=== PATIENT | female | born 1995 | race American Indian/Alaskan Native ===

== ENCOUNTER 2018-11-10 11:36 | Outpatient (CLI) | payer BC ==
[2018-11-10 12:59] LABS: Hematocrit 27.4 % (30.3-42.9); Hemoglobin 9.4 gm/dl (10.1-14.3); Mean Corpuscular HGB Conc 34 % (30-34); Mean Corpuscular Hemoglobin 29 pg (28-32); Mean Corpuscular Volume 86 fl (79-97); Platelet Count 211 K/mm3 (140-440); Red Blood Count 3.18 M/mm3 (3.65-5.03); Red Cell Distribution Width 13.9 % (13.2-15.2)
[2018-11-10 13:03] LABS: Bilirubin,Urine NEG (Negative); Blood,Urine NEG (Negative); Color,Urine Yellow (Yellow); Mucus,Urine 1+ /HPF; Urobilinogen,Urine < 2.0 mg/dL (<2.0)
[2018-11-10 13:24] LABS: Uric Acid 5.3 mg/dL (3.5-7.6)
[2018-11-10 13:26] LABS: Alanine Aminotransferase < 5 units/L (7-56)
[2018-11-10 15:15] VITALS: BP 169/91
== END 2018-11-10 14:20 | disposition home or self-care (01) ==
LOC: TRG 11:36
PROVIDERS: ATTEND Obstetrics & Gynecology
DX: O47.03 False labor before 37 completed weeks of gestation, third trimester (principal); Z3A.37 37 weeks gestation of pregnancy
CPT/HCPCS: 36415; 59025; 81001; 82565; 84450; 84460; 84550; 85027

== ENCOUNTER 2018-11-21 15:09 | Inpatient (IN) | payer BC, MEDICAID ==
--- NOTE | 2018-11-21 16:14 | History and Physical Report ---
History of Present Illness Date of examination: 11/21/18 Date of admission: 11/21/18 15:09 Chief complaint: Induction of labor History of present illness: Pt is a 22yo BF EDC 12/01/18; EGA 38 6/7 weeks presents for induction of labor per Perinatology due to PIH. Her BP's in the office were 150/92 and 140/102 and 24 hour urine showed 350mg protein, but she denies headaches or blurred vision. She received care at [facility] since 17 weeks and co-managed by [facility] for Obesity and Preeclampsia. records are available and GBS is Negative. 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 History: herpes Social history: no significant social history, single - Obstetrical History Expected Date of Delivery: 11/29/18 Actual Gestation: 38 Week(s) 6 Day(s) : 1 Medications and Allergies Allergies Allergy/AdvReac Type Severity Reaction Status Date / Time No Known Allergies Allergy Verified 11/21/18 16:10 Review of Systems All systems: negative - Vital Signs Vital signs: Vital Signs Pulse BP 102 H 133/82 11/21/18 15:48 11/21/18 15:48 Temp Pulse Resp BP Pulse Ox 102 H 133/82 11/21/18 15:48 11/21/18 15:48 - Physical Exam Breasts: Positive: deferred Cardiovascular: Regular rate Lungs: Positive: Clear to auscultation Abdomen: Positive: normal appearance Genitourinary (Female): Positive: normal external genitalia Uterus: Positive: enlarged Extremities: Positive: normal - Obstetrical FHR: category 1 Uterine Contraction Monitor Mode: External Cervical Dilatation: 1 (per nurse) Cervical Effacement Percentage: 50 (per nurse) station: -2 Uterine Contraction Pattern: Absent Results Result Diagrams: 11/21/18 16:16 11/21/18 16:16 All other labs normal. Ultrasound: report reviewed (BPP 02/02; ROSALINDA 16.42) Assessment and Plan - Patient Problems (1) 38 weeks gestation of Onset Date: 11/21/18 Current Visit: Yes Status: Acute Plan to address problem: A: IUP @ 38 6/7 weeks Suspected preeclampsia P: Admit to L&D for cervidil/pitocin induction of labor Obtain PIH labs (2) Pre-eclampsia affecting , antepartum Onset Date: 11/21/18 Current Visit: Yes Status: Acute
[2018-11-21] MEDS ORDERED: BRETHINE IVP PRN (16:18)
[2018-11-21] MEDS ORDERED: ZOFRAN IV PRN (16:18)
[2018-11-21] MEDS ORDERED: MINERAL OIL PO PRN (16:18)
[2018-11-21] MEDS ORDERED: SUBLIMAZE IV PRN (16:18)
[2018-11-21] MEDS ORDERED: PHENERGAN PO PRN (16:18)
[2018-11-21] MEDS ORDERED: BRETHINE SUB-Q PRN (16:18)
[2018-11-21 16:34] LABS: Hematocrit 27.3 % (30.3-42.9); Hemoglobin 9.4 gm/dl (10.1-14.3); Mean Corpuscular HGB Conc 35 % (30-34); Mean Corpuscular Volume 86 fl (79-97); Platelet Count 212 K/mm3 (140-440); Red Blood Count 3.19 M/mm3 (3.65-5.03); Red Cell Distribution Width 14.5 % (13.2-15.2)
[2018-11-21] MEDS ORDERED: XYLOCAINE 2% INFILTRATI ONE (17:00)
[2018-11-21] MEDS ORDERED: PITOCin/NS 20 UNIT/1000ML DRIP 20 UNITS/1,000 ML BAG IV SCH (17:00)
[2018-11-21] MEDS ORDERED: PITOCin/NS 30 UNIT/500ML 30 UNITS/500 ML BAG IV SCH ×2 (17:00)
[2018-11-21 17:01] LABS: BUN/Creatinine Ratio 12; Blood Urea Nitrogen 7 mg/dL (7-17); Calcium 9.1 mg/dL (8.4-10.2); Hemolysis Index 16
[2018-11-21 17:09] LABS: Alanine Aminotransferase < 5 units/L (7-56)
[2018-11-21] MEDS ORDERED: CERVIDIL VG ONE (17:18)
[2018-11-22] MEDS: LACTATED RINGERS 1,000 ML IV SCH ×2 (05:29→19:00)
[2018-11-22] MEDS: STADOL IV PRN ×3 (05:30→15:50)
--- NOTE | 2018-11-22 17:32 | Progress Note ---
Assessment and Plan - Patient Problems (1) 38 weeks gestation of Onset Date: 11/21/18 Current Visit: Yes Status: Acute Plan to address problem: A: IUP @ 39 0/7 weeks Suspected preeclampsia P: Will proceed with a Primary C Section for Failure to descend (2) Pre-eclampsia affecting , antepartum Onset Date: 11/21/18 Current Visit: Yes Status: Acute (3) 39 weeks gestation of Onset Date: 11/22/18 Current Visit: Yes Status: Acute Subjective - Subjective Date of service: 11/22/18 Principal diagnosis: IUP @ 39 0/7 weeks; PIH Interval history: Pt is a 22yo BF EDC 12/01/18; EGA 38 6/7 weeks presents for induction of labor per Perinatology due to PIH. Her BP's in the office were 150/92 and 140/102 and 24 hour urine showed 350mg protein, but she denies headaches or blurred vision. She received cervidil followed by pitocin and is currently 10/100/V/0 and has been pushing x 2 hours. She refuses to push anymore and demands a C Section for delivery. We will proceed with a Primary C Section for failure to descend. Patient reports: loss of fluid, movement normal, contractions, no new complaints, no vaginal bleeding Objective - Vital Signs Vital Signs: Vital Signs - 12hr 11/22/18 11/22/18 11/22/18 06:06 07:05 07:29 Temperature Pulse Rate 89 95 H 97 H Respiratory Rate Blood Pressure 165/79 147/69 141/92 Blood Pressure [Right] 11/22/18 11/22/18 11/22/18 07:34 07:36 08:05 Temperature 98.2 F Pulse Rate 86 86 86 Respiratory 18 Rate Blood Pressure 146/80 140/76 Blood Pressure 140/80 [Right] 11/22/18 16:23 Temperature Pulse Rate 105 H Respiratory Rate Blood Pressure 131/83 Blood Pressure [Right] - Exam Abdomen: Present: normal appearance, soft FHR: category 1 Cervical Dilatation: 10 Cervical Effacement Percentage: 100 station: 0 Uterine Contraction Pattern: Regular Uterine Tone Measurement Phase: Contraction Uterine Contraction Intensity: Strong/Firm - Labs Labs: Abnormal Labs 11/21/18 11/21/18 16:16 16:16 RBC 3.19 L Hgb 9.4 L Hct 27.3 L MCHC 35 H Sodium 134 L Creatinine 0.6 L Glucose 120 H ALT < 5 L Alkaline Phosphatase 144 H Total Protein 6.2 L Albumin 3.0 L Laboratory Results - last 24 hr 11/21/18 16:16 RPR Nonreactive
[2018-11-22] MEDS ORDERED: REGLAN IV ONE (17:34)
[2018-11-22] MEDS ORDERED: PITOCin/NS 20 UNIT/1000ML DRIP 20 UNITS/1,000 ML BAG IV SCH ×2 (18:00→21:00)
[2018-11-22] MEDS ORDERED: LACTATED RINGERS 1,000 ML IV SCH (18:00)
[2018-11-22] MEDS ORDERED: ANCEF/STERILE WATER 2 GM/20 ML 2 GM/20 ML SYRINGE IV NR (18:00)
[2018-11-22] MEDS ORDERED: PEPCID IV ONE (18:34)
[2018-11-22] MEDS ORDERED: BICITRA PO ONE (18:34)
--- NOTE | 2018-11-22 18:48 | Anesthesia Consultation ---
Anesthesia Consult and Med Hx Date of service: 11/22/18 - Airway Anesthetic Teeth Evaluation: Good ROM Head & Neck: Adequate Mental/Hyoid Distance: Adequate Mallampati Class: Class III Intubation Access Assessment: Probably Good - Pulmonary Exam CTA: Yes - Cardiac Exam Cardiac Exam: RRR - Pre-Operative Health Status ASA Pre-Surgery Classification: ASA3 Proposed Anesthetic Plan: Spinal - Pulmonary Hx Smoking: No Hx Asthma: No Hx Respiratory Symptoms: No SOB: No COPD: No Home Oxygen Therapy: No Hx Pneumonia: No Hx Sleep Apnea: No - Cardiovascular System Hx Hypertension: No Hx Coronary Artery Disease: No Hx Heart Attack/AMI: No Hx Angina: No Hx Percutaneous Transluminal Coronary Angioplasty (PTCA): No Hx Cardia Arrhythmia: No Hx Pacemaker: No Hx Internal Defibrillator: No Hx Valvular Heart Disease: No Hx Heart Murmur: No Hx Peripheral Vascular Disease: No - Central Nervous System Hx Neuromuscular Disorder: No Hx Seizures: No CVA: No Hx Back Pain: Yes Hx Psychiatric Problems: No - Gastrointestinal Hx Ulcer: No Hx Gastroesophageal Reflux Disease: Yes - Endocrine Hx Renal Disease: No Hx End Stage Renal Disease: No Hx Cirrhosis: No Hx Liver Disease: No Hx Insulin Dependent Diabetes: No Hx Non-Insulin Dependent Diabetes: No Hx Thyroid Disease: No Hx Hypothyroidism: No Hx Hyperthyroidism: No - Hematic Hx Anemia: Yes Hx Sickle Cell Disease: No - Other Systems Hx Alcohol Use: No Hx Substance Use: No Hx Cancer: No Hx Obesity: Yes (BMI 46.9)
[2018-11-22] MEDS ORDERED: PHENERGAN PO PRN (18:50)
[2018-11-22] MEDS ORDERED: DILAUDID IV PRN ×2 (18:50)
[2018-11-22] MEDS ORDERED: ZOFRAN IV PRN (18:50)
[2018-11-22] MEDS ORDERED: PHENERGAN PR PRN (18:50)
[2018-11-22] MEDS ORDERED: BENADRYL IV PRN (18:50)
--- NOTE | 2018-11-22 18:50 | Anesthesia Day of Surgery ---
Anesthesia Day of Surgery - Day of Surgery Patient Examined: Yes Patient H&P Reviewed: Yes Patient is NPO: Yes Beta Blockers: No Cardiac Clearance: No Pulmonary Clearance: No Kishore's Test: N/A
[2018-11-22] MEDS ORDERED: SODIUM CHLORIDE FLUSH SYRINGE 10 ML IV NR ×2 (19:00→21:00)
[2018-11-22] MEDS ORDERED: SUBLIMAZE ONE (19:18)
[2018-11-22] MEDS ORDERED: WATER FOR IRRIG STERILE IR ONE (20:01)
[2018-11-22] MEDS ORDERED: NACL 0.9% IR ONE (20:01)
[2018-11-22] MEDS ORDERED: ZOFRAN ONE (20:38)
[2018-11-22] MEDS ORDERED: LANSINOH TP PRN (20:52)
[2018-11-22] MEDS ORDERED: MILK OF MAGNESIA PO PRN (20:52)
[2018-11-22] MEDS ORDERED: TORADOL IV PRN (20:52)
[2018-11-22] MEDS ORDERED: SENOKOT PO PRN (20:52)
[2018-11-22] MEDS ORDERED: NARCAN 0.4 MG/1 ML IV PRN (20:52)
[2018-11-22] MEDS ORDERED: TUCKS PAD TP PRN (20:52)
[2018-11-22] MEDS ORDERED: MYLICON PO PRN (20:52)
[2018-11-22] MEDS ORDERED: PERCOCET 5/325 PO PRN (20:52)
[2018-11-22] MEDS ORDERED: NORCO 5/325 PO PRN (20:52)
[2018-11-22] MEDS ORDERED: D5LR 1,000 ML IV SCH (21:00)
--- NOTE | 2018-11-22 21:04 | Operative Report ---
Operative Report Operative Report: Date of procedure: 11/22/2018 Pre-operative diagnosis: 1. Intrauterine at 39 0/7 weeks 2. Pregna ncy-induced hypertension 3. Failed induction of labor 4. Failure to descend Post-operative diagnosis: Same Procedure name(s): Primary low transverse section Surgeon: Stephon Andrews MD Director Learning: None Anesthesia: Spinal anesthesia by Alix Simon CRNA EBL: 400 mL Findings: A 3064 g female Apgars 8 at 1 minute 9 at 5 minutes. Clear amniotic fluid. Normal uterus. Normal tubes and ovaries bilaterally. Procedure: After the patient was prepped and draped in usual sterile fashion, and after satisfactory level of epidural anesthesia was obtained, the skin knife was used to make a transverse skin incision. The incision was excised down to layer of the fascia, which was nicked in the midline and extended laterally using the Bovie cautery. The rectus muscles were dissected off the rectus fascia both superiorly and inferiorly. The rectus bellies in the midline, and the peritoneum was entered under direct visualization. The peritoneal incision was extended superiorly and inferiorly. A bladder flap was created and the bladder blade was then placed. The uterus was scored in a curvilinear linear fashion, entered in the midline revealing clear amniotic fluid. The infant's head was delivered onto the surgical field, and the oropharynx and nasopharynx were bulb suctioned. The rest of the 's body was delivered, cord was doubly clamped and cut and the infant was handed to the waiting respiratory team. Cord blood was then obtained. The placenta was manually removed from the uterus, and the uterus removed from its normal anatomical position. After gentle uterine lavage, the incision was inspected and found to be without extensions. It was then closed in 2 layers using 0 Vicryl suture in a running interlocking fashion, the second layer imbricating the first. After good hemostasis was achieved, copious amounts or irrigation was performed, and the gutters were suctioned free of blood and blood clots. Tisseel sealant was sprayed across the uterine incision. The uterus was then returned to its normal anatomical position, and after excellent hemostasis assured, the peritoneum was re-approximated using 3-0 Vicryl suture in a running interlocking fashion, and then the rectus muscles were re-approximated using 3-0 Vicryl suture in a [id number] configuration. The fascia was then re- approximated using 0 Vicryl suture in running interlocking fashion. The subcutaneous layer was made hemostatic using Bovie cautery, the Tisseel sealant was sprayed across the fascial incision and the skin edges re-approximated using 4-0 Vicryl suture in a sub-cuticular fashion. Patient tolerated the procedure well was transported to recovery in stable condition.
--- NOTE | 2018-11-22 21:06 | Post Anesthesia Evaluation ---
- Post Anesthesia Evaluation Patient Participated: Yes Airway Patent: Yes Stable Respiratory Function: Yes Nausea/Vomiting: No Temp > 96.8F: Yes Pain Manageable: Yes Adequeate Hydration: Yes Anesthesia Complications: No Block Receding Appropriately: Yes Patient on Ventilator: No
[2018-11-23] MEDS: ANCEF/NS 1 GM/50 ML 1 GM/50 ML BAG IV SCH ×2 (00:15→09:51)
[2018-11-23] MEDS: TYLENOL PO PRN (01:17)
--- NOTE | 2018-11-23 08:56 | Progress Note ---
Assessment and Plan - Patient Problems (1) 38 weeks gestation of Onset Date: 11/21/18 Current Visit: Yes Status: Resolved (2) Pre-eclampsia affecting , antepartum Onset Date: 11/21/18 Current Visit: Yes Status: Resolved (3) 39 weeks gestation of Onset Date: 11/22/18 Current Visit: Yes Status: Resolved (4) Status post Onset Date: 11/23/18 Current Visit: Yes Status: Resolved Plan to address problem: A: S/P C Section - POD #1 Doing well PIH - stable Asymptomatic anemia - stable P: Continue RPOC Anticipate discharge in 24-48hrs (5) Acute blood loss anemia Onset Date: 11/23/18 Current Visit: Yes Status: Resolved Subjective - Subjective Date of service: 11/23/18 Principal diagnosis: s/p C Section - POD #1 Interval history: Pt is feeling well without complaints. Bleeding improved. Patient reports: appetite normal, voiding normally, pain well controlled, ambulating normally, no dizzy ambulation, no flatus, no nauseated [place]: doing well, nursing well, bottle feeding Objective - Vital Signs Latest vital signs: Vital Signs Temp Pulse Resp BP BP Pulse Ox 11/23/18 04:33 98.2 F 118 H 20 127/65 95 11/22/18 22:20 99.0 F 70 16 133/78 99 11/22/18 22:01 98.2 F 69 18 103/52 96 11/22/18 21:40 69 15 128/64 98 11/22/18 21:26 80 15 111/55 99 11/22/18 21:10 82 18 111/52 98 11/22/18 21:05 96 H 17 110/61 97 11/22/18 21:01 98.1 F 100 H 18 96/62 97 11/22/18 16:23 105 H 131/83 Intake and Output 11/22/18 11/23/18 11/23/18 22:59 06:59 14:59 Intake Total 1400 240 Output Total 650 1000 Balance 750 -760 Intake: IV 1400 Oral 240 Output: Urine 650 1000 Indwelling Catheter 1000 Uretheral (Dow) 200 Other: Total, Intake Amount 240 Total, Output Amount 1000 Estimated Blood Loss 400 - Exam Breasts: Present: deferred Abdomen: Present: normal appearance, soft Uterus: Present: normal, firm, fundal height below umbilicus Incision: Present: normal, dry, intact, dressed - Labs Labs: Laboratory Tests 11/21/18 11/21/18 11/21/18 16:16 16:16 16:16 WBC 7.3 RBC 3.19 L Hgb 9.4 L Hct 27.3 L MCV 86 MCH 30 MCHC 35 H RDW 14.5 Plt Count 212 Sodium 134 L Potassium 3.9 Chloride 101.7 Carbon Dioxide 22 Anion Gap 14 BUN 7 Creatinine 0.6 L Estimated GFR > 60 BUN/Creatinine Ratio 12 Glucose 120 H Calcium 9.1 Total Bilirubin 0.30 AST 17 ALT < 5 L Alkaline Phosphatase 144 H Total Protein 6.2 L Albumin 3.0 L Albumin/Globulin Ratio 0.9 RPR Nonreactive Blood Type Antibody Screen Screen 11/21/18 11/23/18 11/23/18 16:16 10:21 10:21 WBC RBC Hgb 7.5 L Hct 21.7 L MCV MCH MCHC RDW Plt Count Sodium Potassium Chloride Carbon Dioxide Anion Gap BUN Creatinine Estimated GFR BUN/Creatinine Ratio Glucose Calcium Total Bilirubin AST ALT Alkaline Phosphatase Total Protein Albumin Albumin/Globulin Ratio RPR Blood Type A NEGATIVE A NEGATIVE Antibody Screen Negative Negative Screen Negative
[2018-11-23] MEDS: FEOSOL PO SCH (09:52)
[2018-11-23] MEDS: PRENATAL VITAMIN PO SCH (09:52)
[2018-11-23] MEDS: COLACE PO PRN ×2 (10:14→21:54)
[2018-11-23 10:38] LABS: Hematocrit 21.7 % (30.3-42.9); Hemoglobin 7.5 gm/dl (10.1-14.3)
[2018-11-23] MEDS: IBUPROFEN PO PRN ×3 (12:54→23:59)
[2018-11-23] MEDS ORDERED: BOOSTRIX IM ONE (20:55)
[2018-11-23] MEDS ORDERED: M-M-R II VACCINE SUB-Q ONE (20:55)
--- NOTE | 2018-11-24 08:47 | Progress Note ---
Assessment and Plan - Patient Problems (1) 38 weeks gestation of Onset Date: 11/21/18 Current Visit: Yes Status: Resolved (2) Pre-eclampsia affecting , antepartum Onset Date: 11/21/18 Current Visit: Yes Status: Resolved (3) 39 weeks gestation of Onset Date: 11/22/18 Current Visit: Yes Status: Resolved (4) Status post Onset Date: 11/23/18 Current Visit: Yes Status: Resolved Plan to address problem: A: S/P C Section - POD #2 Doing well PIH - stable Asymptomatic anemia - stable P: May go home tomorrow. (5) Acute blood loss anemia Onset Date: 11/23/18 Current Visit: Yes Status: Resolved Subjective - Subjective Date of service: 11/24/18 Principal diagnosis: s/p C Section - POD #2 Interval history: Pt is feeling well without complaints. She is tolerating a reg diet without nausea or vomiting, ambulating and voiding without difficulty. Patient reports: appetite normal, voiding normally, pain well controlled, flatus, ambulating normally, no dizzy ambulation, no nauseated [place]: doing well, nursing well, bottle feeding Objective - Vital Signs Latest vital signs: Vital Signs Temp Pulse Resp BP Pulse Ox 11/23/18 21:41 99.0 F 109 H 18 122/83 98 11/23/18 16:41 98.3 F 107 H 16 126/76 96 11/23/18 09:09 98.7 F 107 H 16 112/68 100 Intake and Output 11/23/18 11/24/18 11/24/18 22:59 06:59 14:59 Intake Total 360 Balance 360 Intake: Intake, Free Water 360 Other: # Voids Void 1 - Exam Abdomen: Present: normal appearance, soft Uterus: Present: normal, firm, fundal height below umbilicus Extremities: Present: normal Incision: Present: normal, dry, intact - Labs Labs: Abnormal lab results 11/23/18 Range/Units 10:21 Hgb 7.5 L (10.1-14.3) gm/dl Hct 21.7 L (30.3-42.9) %
--- NOTE | 2018-11-24 09:16 | Discharge Summary ---
Providers - Providers Date of Admission: 11/21/18 15:09 Date of discharge: 11/25/18 Attending physician: ALEXANDRU MIRANDA Primary care physician: ALEXANDRU MIRANDA Hospitalization Reason for admission: induction of labor, IUP at term, other (PIH) Delivery: Procedure: section, primary low transverse Episiotomy: none Laceration: none Incision: normal, dry, intact Other procedures: none complications: none Discharge diagnosis: IUP at term delivered baby: female Hospital course: Pt is a 22yo BF EDC 12/01/18; EGA 39 0/7 weeks who presented for induction of labor per Perinatology due to PIH. Her BP's in the office were 150/92 and 140/102 and 24 hour urine showed 350mg protein, but she denied headaches or blurred vision. She was admitted and induced with cervidil followed by pitocin and reached 10/100/V/0 but failed to descend. She therefore underwent an uncomplicated Primary C Section and tolerated the procedure well. By POD #2 she was tolerating a reg diet without nausea or vomiting, ambulating and voiding without difficulty. She was therefore discharged to home on POD #3 in stable c ondition. Condition at discharge: Good Disposition: DC-01 TO HOME OR SELFCARE - Discharge Diagnoses (1) 38 weeks gestation of Status: Resolved (2) Pre-eclampsia affecting , antepartum Status: Resolved (3) 39 weeks gestation of Status: Resolved (4) Status post Status: Resolved (5) Acute blood loss anemia Status: Resolved Plan - Discharge Medications Prescriptions: Ferrous Sulfate [Feosol 325 MG tab] 325 mg PO BID #60 tablet Ibuprofen [Motrin 800 MG tab] 800 mg PO Q6H PRN #30 tablet PRN Reason: Pain, Mild (1-3) oxyCODONE /ACETAMINOPHEN [Percocet 5/325 mg] 1 tab PO Q6H PRN #30 tablet PRN Reason: Pain, Moderate (4-6) Vit-Fe Fumar-FA [ Vitamin] 1 each PO QDAY #30 tablet - Provider Discharge Summary Activity: routine, no sex for 6 weeks, no heavy lifting 4 weeks, no strenuous exercise Diet: routine Instructions: routine Additional instructions: [] Smoking cessation referral if applicable(refer to patient education folder for contact #) [] Refer to [facility] Booklet Call your doctor immediately for: * Fever > 100.5 * Heavy vaginal bleeding ( >1 pad per hour) * Severe persistent headache * Shortness of breath * Reddened, hot, painful area to leg or breast * Drainage or odor from incision. * Keep incision clean and dry at all times and follow doctor's instructions regarding bathing/showering - Follow up plan Follow up: ALEXANDRU MIRANDA MD [Primary Care Provider] - 14 Days
[2018-11-24] MEDS: FEOSOL PO SCH (10:09)
[2018-11-24] MEDS: PRENATAL VITAMIN PO SCH (10:10)
[2018-11-24] MEDS: IBUPROFEN PO PRN ×2 (16:57→23:10)
[2018-11-25] MEDS: TYLENOL PO PRN (02:44)
[2018-11-25] MEDS: FEOSOL PO SCH (09:20)
[2018-11-25] MEDS: COLACE PO PRN (09:20)
[2018-11-25] MEDS: PRENATAL VITAMIN PO SCH (09:20)
[2018-11-25 09:34] VITALS: BP 111/71
== END 2018-11-25 11:30 | disposition home or self-care (01) | DRG 787 ==
LOC: LD 15:09 → OB 11-22 22:16
PROVIDERS: ADMIT Obstetrics & Gynecology; ATTEND Obstetrics & Gynecology
PROC: 3E0P7VZ Introduction of Hormone into Female Reproductive, Via Natural or Artificial Opening (ICD-10-PCS; 2018-11-21)
PROC: 3E033VJ Introduction of Other Hormone into Peripheral Vein, Percutaneous Approach (ICD-10-PCS; 2018-11-21)
PROC: 10D00Z1 Extraction of Products of Conception, Low, Open Approach (ICD-10-PCS; principal; 2018-11-22)
PROC: 3E0234Z Introduction of Serum, Toxoid and Vaccine into Muscle, Percutaneous Approach (ICD-10-PCS; 2018-11-23)
DX: O14.94 Unspecified pre-eclampsia, complicating childbirth (principal); D62 Acute posthemorrhagic anemia; O99.214 Obesity complicating childbirth; O13.4 Gestational [pregnancy-induced] hypertension without significant proteinuria, complicating childbirth; O99.62 Diseases of the digestive system complicating childbirth; O62.1 Secondary uterine inertia; O61.9 Failed induction of labor, unspecified; O90.81 Anemia of the puerperium; K21.9 Gastro-esophageal reflux disease without esophagitis; E66.9 Obesity, unspecified; Z3A.38 38 weeks gestation of pregnancy; Z37.0 Single live birth; Z23 Encounter for immunization
CPT/HCPCS: 36415; 80053; 85014; 85018; 85027; 85461; 86592; 86850; 86900; 86901; G0378; A6250; C9250; J0595; J0690; J1170; J1885; J2405; J2590; J2765; J2790; J3010; J7120; J7121

== ENCOUNTER 2018-11-30 23:25 | Emergency (ER) | payer BC, MEDICAID ==
[2018-12-01] MEDS ORDERED: KEFLEX PO ONE (02:51)
[2018-12-01] MEDS ORDERED: IBUPROFEN PO ONE (02:51)
--- NOTE | 2018-12-01 02:55 | Emergency Department Report ---
<WILLIAN TIJERINA - Last Filed: 12/01/18 03:23> ED General Adult HPI - General Chief complaint: Laceration/Recheck/Suture Stated complaint: INFECTED C SECTION Time Seen by Provider: 12/01/18 02:22 Source: patient Mode of arrival: Ambulatory Limitations: No Limitations - History of Present Illness Initial comments: Patient is a A0 22-year-old [place] female who is one week through who presents to the ED with acute onset surgical site dehiscence and pain for the last 2 days. Patient states that she has not contacted her [employer] physician Dr. Andrews. Patient states that she noticed fluid draining from the surgical site and a yellow tissue in the surgical site and thought that the surgical site was already infected. Patient denies fever, chills, nausea, vomiting, swelling around the wound, fluctuance, redness around the wound, dizziness, chest pain or shortness of breath. MD Complaint: surgical wound dehiscence -: Sudden, days(s) (2) Location: abdomen (suprapubic) Radiation: non-radiation Severity scale (0 -10): 3 Quality: aching, dull Consistency: constant Improves with: none Worsens with: none Associated Symptoms: denies other symptoms. denies: confusion, chest pain, cough, fever/chills, loss of appetite, malaise, nausea/vomiting, seizure, shortness of breath, syncope, weakness Treatments Prior to Arrival: none - Related Data Previous Rx's Medication Instructions Recorded Last Taken Type Ferrous Sulfate [Feosol 325 MG tab] 325 mg PO BID #60 tablet 11/24/18 Unknown Rx Ibuprofen [Motrin 800 MG tab] 800 mg PO Q6H PRN #30 tablet 11/24/18 Unknown Rx Vit-Fe Fumar-FA [ 1 each PO QDAY #30 tablet 11/24/18 Unknown Rx Vitamin] oxyCODONE /ACETAMINOPHEN [Percocet 1 tab PO Q6H PRN #30 tablet 11/24/18 Unknown Rx 5/325 mg] cephALEXin [Keflex] 500 mg PO Q6HR #40 capsule 12/01/18 Unknown Rx Allergies Allergy/AdvReac Type Severity Reaction Status Date / Time No Known Allergies Allergy Verified 11/21/18 16:10 ED Review of Systems Constitutional: denies: chills, fever Eyes: denies: eye pain, eye discharge, vision change ENT: denies: ear pain, throat pain Respiratory: denies: cough, shortness of breath, wheezing Cardiovascular: denies: chest pain, palpitations Endocrine: no symptoms reported Gastrointestinal: abdominal pain (suprapubic surgical wound dehiscence). denies: nausea, diarrhea Genitourinary: denies: urgency, dysuria, discharge Musculoskeletal: denies: back pain, joint swelling, arthralgia Skin: other ( surgical wound dehiscence). denies: rash, lesions Neurological: denies: headache, weakness, paresthesias Psychiatric: denies: anxiety, depression Hematological/Lymphatic: denies: easy bleeding, easy bruising ED Past Medical Hx - Past Medical History Previous Medical History?: Yes Hx Hypertension: No Hx Heart Attack/AMI: No Hx Congestive Heart Failure: No Hx Diabetes: No Hx Deep Vein Thrombosis: No Hx Liver Disease: No Hx Renal Disease: No Hx Sickle Cell Disease: No Hx Seizures: No Hx Asthma: No Hx COPD: No Hx HIV: No Additional medical history: PRE ECLAMPSIA - Surgical History Past Surgical History?: Yes Hx Pacemaker: No Hx Internal Defibrillator: No Additional Surgical History: - Social History Smoking Status: Never Smoker Substance Use Type: None - Medications Home Medications: Home Medications Medication Instructions Recorded Confirmed Last Taken Type Ferrous Sulfate [Feosol 325 MG tab] 325 mg PO BID #60 tablet 11/24/18 Unknown Rx Ibuprofen [Motrin 800 MG tab] 800 mg PO Q6H PRN #30 tablet 11/24/18 Unknown Rx Vit-Fe Fumar-FA [ 1 each PO QDAY #30 tablet 11/24/18 Unknown Rx Vitamin] oxyCODONE /ACETAMINOPHEN [Percocet 1 tab PO Q6H PRN #30 tablet 11/24/18 Unknown Rx 5/325 mg] cephALEXin [Keflex] 500 mg PO Q6HR #40 capsule 12/01/18 Unknown Rx ED Physical Exam - General Limitations: No Limitations General appearance: alert, in no apparent distress - Head Head exam: Present: atraumatic, normocephalic, normal inspection - Eye Eye exam: Present: normal appearance, PERRL, EOMI Pupils: Present: normal accommodation - ENT ENT exam: Present: normal exam, normal orophraynx, mucous membranes moist, TM's normal bilaterally, normal external ear exam - Neck Neck exam: Present: normal inspection, tenderness, full ROM - Respiratory Respiratory exam: Present: normal lung sounds bilaterally. Absent: respiratory distress, wheezes, rales, rhonchi, chest wall tenderness, decreased breath sounds - Cardiovascular Cardiovascular Exam: Present: normal rhythm, tachycardia, normal heart sounds. Absent: systolic murmur, diastolic murmur, rubs, gallop - GI/Abdominal GI/Abdominal exam: Present: soft, tenderness (Mildy tender suprapubic area, with surgical wound dehiscence), normal bowel sounds. Absent: guarding, rebound, hyperactive bowel sounds, hypoactive bowel sounds, mass - Rectal Rectal exam: Present: deferred - Extremities Exam Extremities exam: Present: normal inspection, full ROM, normal capillary refill - Back Exam Back exam: Present: normal inspection, full ROM. Absent: tenderness, CVA tenderness (R), CVA tenderness (L), muscle spasm - Neurological Exam Neurological exam: Present: alert, oriented X3, CN II-XII intact, normal gait, reflexes normal - Psychiatric Psychiatric exam: Present: normal affect, normal mood - Skin Skin exam: Present: warm, dry, intact, normal color, other (Dehiscence of suprapubic surgical wound, no sign of infection). Absent: rash ED Course - Reevaluation(s) Reevaluation #1: 12/01/18 03:28 This is a 22-year-old female who is one week presented to the ED with surgical wound dehiscence. Patient is alert and oriented 3 and is not in distress but tachycardic in triage. The wound was evaluated, and cleaned thoroughly and dressed appropriately with Steri-Strips and sterile gauze and patient was treated in the ED with initial oral antibiotics and pain medication. At this time the surgical wound does not appear to be infected and they dehisced areas exhibit normal subcutaneous tissue with clear tissue fluid draining from the site. There is no redness, swelling or severe tenderness and purulent discharge from the surgical site. Patient was discharged home on oral antibiotic prescription and advised to follow-up with a [employer] physician, Dr. Nayan ellison first thing in the morning for reevaluation. Patient was advised to return to the ED immediately if symptoms get worse. 12/01/18 03:30 12/01/18 03:31 ED Medical Decision Making - Medical Decision Making This is a 22-year-old female who is one week presented to the ED with surgical wound dehiscence. Patient is alert and oriented 3 and is not in distress but tachycardic in triage. The wound was evaluated, and cleaned thoroughly and dressed appropriately with Steri-Strips and sterile gauze and patient was treated in the ED with initial oral antibiotics and pain medication. At this time the surgical wound does not appear to be infected and they dehisced areas exhibit normal subcutaneous tissue with clear tissue fluid draining from the site. There is no redness, swelling or severe tenderness and purulent discharge from the surgical site. Patient was discharged home on oral antibiotic prescription and advised to follow-up with a [employer] physician, Dr. Andrews first thing in the morning for reevaluation. Patient was advised to return to the ED immediately if symptoms get worse. - Differential Diagnosis dehiscence of surgical wound; cellulitis; ED Disposition Clinical Impression: Dehiscence of surgical wound Qualifiers: Encounter type: initial encounter Qualified Code(s): T81.31XA - Disruption of external operation (surgical) wound, not elsewhere classified, initial encounter Disposition: DC-01 TO HOME OR SELFCARE Is pt being admited?: No Does the pt Need Aspirin: No Condition: Stable Instructions: Suture Care (ED), Wound Infection (ED), Wound Dehiscence (ED) Additional Instructions: Take medications with food, drink plenty of fluids and follow-up with Dr. Andrews your [employer] physician in 24-48 hours for reevaluation. Return to the ED immediately if symptoms get worse. Prescriptions: cephALEXin [Keflex] 500 mg PO Q6HR #40 capsule Referrals: ALEXANDRU ANDREWS MD [Staff Physician] - 24 Hours Time of Disposition: 02:53 Print Language: POLISH <MICA ORNELAS - Last Filed: 12/01/18 05:25> ED Review of Systems ROS: Stated complaint: INFECTED C SECTION Other details as noted in HPI ED Course Vital Signs 11/30/18 12/01/18 12/01/18 23:46 03:10 03:26 Temperature 98.5 F Pulse Rate 106 H 88 Respiratory 18 16 16 Rate Blood Pressure 149/97 Blood Pressure 139/95 [Right] O2 Sat by Pulse 98 99 Oximetry Critical care attestation.: If time is entered above; I have spent that time in minutes in the direct care of this critically ill patient, excluding procedure time. ED Disposition Is pt being admited?: No Does the pt Need Aspirin: No
[2018-12-01 03:27] VITALS: BP 139/95
== END 2018-12-01 03:25 | disposition home or self-care (01) ==
LOC: ED 23:25
DX: T81.31XA Disruption of external operation (surgical) wound, not elsewhere classified, initial encounter (principal); Z79.899 Other long term (current) drug therapy; Y92.89 Other specified places as the place of occurrence of the external cause